=== PATIENT | male | born 1960 | race Native Hawaiian/Other Pacific Islander ===

== ENCOUNTER 2016-12-15 18:01 | Emergency (ER) | payer OTHER ==
[~2016-12-15] VITALS: Ht 195.6 cm; Wt 82.6 kg
[2016-12-15 19:20] VITALS: BP 189/78; TEMP 98.1
== END 2016-12-15 19:22 | disposition home or self-care (01) ==
LOC: ED 18:01
DX: S70.351A Superficial foreign body, right thigh, initial encounter (principal); W45.8XXA Other foreign body or object entering through skin, initial encounter
CPT/HCPCS: 99283; J2001

== ENCOUNTER 2017-01-24 09:48 | Emergency (ER) | payer OTHER ==
[~2017-01-24] VITALS: Ht 200.7 cm; Wt 83.5 kg
[2017-01-24 09:30] VITALS: BP 174/110; TEMP 98.2
[2017-01-24 10:18] LABS: PLATELET COUNT 220 K/uL (142-355)
[2017-01-24 10:23] LABS: POTASSIUM 4.1 mmol/L (3.6-5.2); SODIUM 134 mmol/L (136-145)
== END 2017-01-24 13:19 | disposition left against medical advice (07) ==
LOC: ED 09:48
DX: R45.851 Suicidal ideations (principal); F32.9 Major depressive disorder, single episode, unspecified
CPT/HCPCS: 36415; 80053; 80307; 80320; 80329; 81000; 85027; 99285; G0479

== ENCOUNTER 2018-03-29 08:16 | Emergency (ER) | payer OTHER ==
[~2018-03-29] VITALS: Ht 193 cm; Wt 77.1 kg
[2018-03-29 08:28] VITALS: TEMP 98.1
[2018-03-29 10:11] LABS: PLATELET COUNT 240 K/uL (142-355); POTASSIUM 3.9 mmol/L (3.6-5.2); SODIUM 140 mmol/L (136-145)
[2018-03-29 12:55] VITALS: BP 128/82
== END 2018-03-29 14:00 | disposition short-term general hospital (02) ==
LOC: ED 08:16
PROC: 0W9B00Z Drainage of Left Pleural Cavity with Drainage Device, Open Approach (ICD-10-PCS; principal; 2018-03-29)
DX: J93.0 Spontaneous tension pneumothorax (principal)
CPT/HCPCS: 36415; 80053; 81000; 82550; 82553; 83880; 84484; 85027; 93005; 94664; 96365; 96375; 96376; 99285; J0696; J2060; J2270

== ENCOUNTER 2018-03-29 14:31 | Outpatient (CLI) | payer OTHER | END 2018-03-29 15:53 | disposition short-term general hospital (02) | LOC: AMB 14:31 | DX: J93.0 Spontaneous tension pneumothorax (principal) | CPT/HCPCS: A0425; A0427 ==

== ENCOUNTER 2018-05-28 09:38 | Emergency (ER) | payer OTHER ==
[~2018-05-28] VITALS: Ht 195.6 cm; Wt 82.6 kg
[2018-05-28 09:40] VITALS: TEMP 99.1
[2018-05-28 11:14] LABS: PLATELET COUNT 212 K/uL (142-355)
[2018-05-28 11:18] LABS: POTASSIUM 3.7 mmol/L (3.6-5.2)
[2018-05-28 12:54] VITALS: BP 132/88
== END 2018-05-28 12:55 | disposition home or self-care (01) ==
LOC: ED 09:38
PROVIDERS: Emergency Medicine
DX: M79.18 Myalgia, other site (principal); R07.9 Chest pain, unspecified
CPT/HCPCS: 80053; 85027; 99283

== ENCOUNTER 2018-12-21 14:51 | Outpatient (CLI) | payer OTHER ==
[2018-12-21 15:36] LABS: PLATELET COUNT 230 K/uL (142-355)
[2018-12-21 15:52] LABS: POTASSIUM 3.7 mmol/L (3.6-5.2)
== END 2018-12-21 19:39 | disposition home or self-care (01) ==
LOC: RAD 14:51
PROVIDERS: Nurse Practitioner Family
DX: Z87.09 Personal history of other diseases of the respiratory system (principal); I10 Essential (primary) hypertension; E78.5 Hyperlipidemia, unspecified; R53.83 Other fatigue; E55.9 Vitamin D deficiency, unspecified; Z12.5 Encounter for screening for malignant neoplasm of prostate
CPT/HCPCS: 36415; 80053; 80061; 81000; 82306; 82607; 84153; 84403; 85027

== ENCOUNTER 2018-12-28 13:25 | Outpatient (CLI) | payer OTHER | END 2018-12-28 21:19 | disposition home or self-care (01) | LOC: RAD 13:25 | DX: M54.17 Radiculopathy, lumbosacral region (principal) ==

== ENCOUNTER 2019-01-24 07:52 | Outpatient (CLI) | payer OTHER | END 2019-01-24 19:15 | disposition home or self-care (01) | LOC: RESP 07:52 | DX: R06.02 Shortness of breath (principal) ==

== ENCOUNTER 2019-05-04 12:52 | Emergency (ER) | payer OTHER ==
[~2019-05-04] VITALS: Ht 195.6 cm; Wt 78.9 kg
[2019-05-04 12:57] VITALS: BP 142/93; TEMP 98.1
== END 2019-05-04 14:15 | disposition home or self-care (01) ==
LOC: ED 12:52
DX: M75.102 Unspecified rotator cuff tear or rupture of left shoulder, not specified as traumatic (principal)
CPT/HCPCS: 99282

== ENCOUNTER 2020-09-07 09:10 | Outpatient (CLI) | payer OTHER | END 2020-09-07 19:36 | disposition home or self-care (01) | LOC: RAD 09:10 | PROVIDERS: ATTEND Family Medicine | DX: I10 Essential (primary) hypertension (principal); E78.49 Other hyperlipidemia; J44.9 Chronic obstructive pulmonary disease, unspecified; M25.561 Pain in right knee ==

== ENCOUNTER 2020-11-27 09:18 | Outpatient (CLI) | payer OTHER ==
[2020-11-27 09:31] LABS: PLATELET COUNT 209 K/uL (142-355)
[2020-11-27 09:48] LABS: POTASSIUM 4.2 mmol/L (3.6-5.2)
== END 2020-11-27 21:08 | disposition home or self-care (01) ==
LOC: LABW 09:18
PROVIDERS: ATTEND Specialist
DX: Z01.810 Encounter for preprocedural cardiovascular examination (principal); R07.89 Other chest pain; I42.8 Other cardiomyopathies
CPT/HCPCS: 36415; 80048; 80076; 85027

== ENCOUNTER 2022-03-11 05:35 | Emergency (ER) | payer OTHER ==
[~2022-03-11] VITALS: Ht 195.6 cm; Wt 78.9 kg
[2022-03-11 05:35] VITALS: TEMP 98.1
[2022-03-11 06:13] LABS: POTASSIUM 3.8 mmol/L (3.6-5.2)
[2022-03-11 06:16] LABS: PLATELET COUNT 201 K/uL (142-355)
[2022-03-11 08:46] VITALS: BP 149/82
== END 2022-03-11 10:20 | disposition short-term general hospital (02) ==
LOC: ED 05:35
PROVIDERS: Emergency Medicine Emergency Medical Services
PROC: 0B9L0ZZ Drainage of Left Lung, Open Approach (ICD-10-PCS; principal; 2022-03-11)
DX: J93.0 Spontaneous tension pneumothorax (principal); Z11.52 Encounter for screening for COVID-19; F17.210 Nicotine dependence, cigarettes, uncomplicated
CPT/HCPCS: 36415; 36600; 80053; 82805; 83605; 84484; 85027; 85379; 85610; 87040; 87502; 87635; 93005; 94664; 96360; 96365; 96375; 96376; 99285; J0696; J2250; J2270; U0003

== ENCOUNTER 2022-09-25 11:32 | Outpatient (CLI) | payer OTHER ==
[2022-09-25 11:47] LABS: PLATELET COUNT 212 K/uL (142-355)
== END 2022-09-25 20:42 | disposition home or self-care (01) ==
LOC: LABW 11:32
PROVIDERS: ATTEND Nurse Practitioner Family
DX: K92.1 Melena (principal)
CPT/HCPCS: 36415; 85027

== ENCOUNTER 2022-09-26 12:18 | Outpatient (CLI) | payer OTHER | END 2022-09-26 19:25 | disposition home or self-care (01) | LOC: LAB 12:18 | PROVIDERS: ATTEND Nurse Practitioner Family | DX: K92.1 Melena (principal) | CPT/HCPCS: 82272 ==

== ENCOUNTER 2022-12-19 14:29 | Outpatient (CLI) | payer OTHER | END 2022-12-19 19:22 | disposition home or self-care (01) | LOC: CT 14:29 | PROVIDERS: ATTEND Internal Medicine Sleep Medicine | DX: F17.210 Nicotine dependence, cigarettes, uncomplicated (principal) ==

== ENCOUNTER 2022-12-30 09:23 | Outpatient (CLI) | payer OTHER | END 2022-12-30 19:58 | disposition home or self-care (01) | LOC: NM 09:23 | PROVIDERS: ATTEND Nurse Practitioner Adult Health | DX: Z01.810 Encounter for preprocedural cardiovascular examination (principal); I25.10 Atherosclerotic heart disease of native coronary artery without angina pectoris; I10 Essential (primary) hypertension; R07.89 Other chest pain | CPT/HCPCS: A9500 ==

== ENCOUNTER 2023-01-30 11:16 | Outpatient (CLI) | payer OTHER | END 2023-01-30 18:54 | disposition home or self-care (01) | LOC: LABW 11:16 | PROVIDERS: ATTEND Internal Medicine Sleep Medicine | DX: J43.2 Centrilobular emphysema (principal) | CPT/HCPCS: 36415; 82103 ==

== ENCOUNTER 2023-02-27 08:37 | Emergency (ER) | payer OTHER ==
[~2023-02-27] VITALS: Ht 195.6 cm; Wt 94.8 kg
[2023-02-27 08:37] VITALS: TEMP 97.7
[2023-02-27 08:56] LABS: PLATELET COUNT 184 K/uL (142-355)
[2023-02-27 09:06] LABS: POTASSIUM 3.6 mmol/L (3.6-5.2)
[2023-02-27 11:15] VITALS: BP 134/100
== END 2023-02-27 11:15 | disposition home or self-care (01) ==
LOC: ED 08:37
PROVIDERS: Family Medicine
DX: J40 Bronchitis, not specified as acute or chronic (principal); J44.9 Chronic obstructive pulmonary disease, unspecified
CPT/HCPCS: 36415; 80053; 83880; 84484; 85027; 85379; 93005; 94664; 96374; 99284; J2930

== ENCOUNTER 2023-03-12 08:05 | Outpatient (CLI) | payer OTHER | END 2023-03-12 19:46 | disposition home or self-care (01) | LOC: US 08:05 | PROVIDERS: ATTEND Nurse Practitioner Family | DX: Z13.6 Encounter for screening for cardiovascular disorders (principal); Z87.891 Personal history of nicotine dependence ==